=== PATIENT | female | born 1990 | race African-American/Black ===

== ENCOUNTER 2025-06-21 16:08 | Emergency (ER) | payer SELFPAY ==
[~2025-06-21] VITALS: Ht 165.1 cm; Wt 70.0 kg
[2025-06-21] MEDS: LORAZEPAM 2MG/ML UD SYRINGE ONE (16:46)
[2025-06-21] MEDS: DIPHENHYDRAMINE 50MG/ML VIAL IM ONE (16:46)
[2025-06-21] MEDS: HALOPERIDOL LACTATE 5MG/ML VIAL IM ONE (16:46)
[2025-06-21] MEDS: LORAZEPAM 2MG/ML UD SYRINGE IM SCH (17:00)
[2025-06-21 17:26] LABS: BASOPHILS % 0.4 % (0.0-2.0); EOSINOPHILS % 4.4 % (0.0-5.0); HEMATOCRIT. 36.8 % (36.0-48.0); HEMOGLOBIN. 11.8 g/dL (12.0-16.0); LYMPHOCYTES % 37.8 % (20.0-50.0); MEAN PLATELET VOLUME 8.0 fl (7.4-10.4); MONOCYTES % 7.9 % (2.0-8.0); NEUTROPHILS % 49.5 % (40.0-76.0); PLATELET 514 x1000/uL (130-400); RED BLOOD CELL COUNT 4.60 mill/uL (4.2-5.4); RED CELL DISTRIBUTION WIDTH 17.6 % (11.6-14.6)
[2025-06-21 17:41] LABS: CREATININE 1.0 mg/dL (0.6-1.0); HCG SCREEN NEGATIVE; UREA NITROGEN BLOOD 12 mg/dL (9-23)
[2025-06-21 17:43] LABS: ASPARTATE AMINOTRANSFERASE 22 IU/L (<34); BILIRUBIN DIRECT < 0.1 mg/dL (<=3.0); BILIRUBIN TOTAL 0.3 mg/dL (0.1-1.0); PROTEIN TOTAL 7.3 g/dL (6.0-8.3)
[2025-06-22 03:49] VITALS: PULSE 96; RESP 22; O2SAT 94
[2025-06-22] MEDS: ALBUTEROL (0.083%) 2.5MG/3ML NEB HHN ONE ×2 (03:49→14:38)
[2025-06-22 04:04] LABS: CLARITY URINE CLOUDY (CLEAR); COLOR URINE YELLOW (YELLOW)
[2025-06-22 04:05] LABS: GLUCOSE URINE NEGATIVE (NEGATIVE); KETONES URINE 1+ (NEGATIVE); OCCULT BLOOD URINE NEGATIVE (NEGATIVE); PH URINE 6.0 (4.5-8.0); PROTEIN URINE NEGATIVE (NEGATIVE); SPECIFIC GRAVITY URINE 1.017 (1.005-1.030)
[2025-06-22 04:06] LABS: NITRITE URINE NEGATIVE (NEGATIVE); UROBILINOGEN URINE 1.0 E.U./dL (0.2-1.0)
[2025-06-22 04:07] LABS: *AMPHETAMINES SCREEN URINE PRESUMPTIVE POSITIVE (NEGATIVE); *BARBITURATES SCREEN URINE NEGATIVE (NEGATIVE); *BENZODIAZEPINES SCREEN URINE NEGATIVE (NEGATIVE); *COCAINE SCREEN URINE NEGATIVE (NEGATIVE); LEUKOCYTE ESTERASE URINE 2+ (NEGATIVE); METHADONE URINE SCREEN NEGATIVE (NEGATIVE); OPIATES URINE SCREEN NEGATIVE (NEGATIVE)
[2025-06-22 04:08] LABS: CANNABINOID URINE SCREEN PRESUMPTIVE POSITIVE (NEGATIVE); ECSTASY MDMA SCREEN URINE CONF.TEST INDICATED (NEGATIVE); PHENCYCLIDINE URINE SCREEN NEGATIVE (NEGATIVE)
[2025-06-22 04:31] LABS: SQUAMOUS EPITHELIAL CELL URINE 2+ /lpf (RARE/1+)
[2025-06-22 04:33] LABS: RBC URINE 0-2 /hpf (0-2)
[2025-06-22 04:34] LABS: BACTERIA URINE TRACE
[2025-06-22 14:38] VITALS: PULSE 98; RESP 20; O2SAT 95
[2025-06-22 16:53] VITALS: BP 112/79; PULSE 74; RESP 16; TEMP 36.7; O2SAT 99
== END 2025-06-22 17:02 ==
LOC: ER 16:08
DX: F39 Unspecified mood [affective] disorder (principal); J45.909 Unspecified asthma, uncomplicated; Z79.899 Other long term (current) drug therapy; Z20.822 Contact with and (suspected) exposure to COVID-19
CPT/HCPCS: 80076; 80048; 80307; 80329; 80320; 84703; 83735; 85025; 36415; 96372; 99285; 87426; 80305; 81003; 94640; J1200; J1630; J2060; Z7610 ×4; 94070; 94664; 98960; G0480